=== PATIENT | female | born 1960 | race Caucasian/White ===

== ENCOUNTER → 2019-09-30 | Outpatient (CLI) | payer OTHER | END | disposition home or self-care (01) | LOC: MRI 11:33 | PROVIDERS: ATTEND Orthopaedic Surgery | DX: M25.561 Pain in right knee (principal) | CPT/HCPCS: 73721 ==

== ENCOUNTER 2022-10-03 11:45 | Emergency (ER) | payer OTHER ==
[~2022-10-03] VITALS: Ht 167.6 cm; Wt 90.7 kg
[2022-10-03] MEDS ORDERED: SYNTHROID75 MCG PO (13:36)
[2022-10-03] MEDS ORDERED: CRESTOR20 MG PO (13:37)
[2022-10-03] MEDS ORDERED: ALDACTAZIDE 251 EACH PO (13:37)
[2022-10-03] MEDS ORDERED: ATACAND32 MG PO (13:37)
== END 2022-10-03 17:22 | disposition home or self-care (01) ==
LOC: ER 11:45
DX: R05.9 Cough, unspecified (principal); Z20.822 Contact with and (suspected) exposure to COVID-19